=== PATIENT | male | born 1955 | race Caucasian/White ===

== ENCOUNTER 2016-11-15 10:44 | Day surgery (SDC) | payer MEDICARE, BC ==
[~2016-11-15 10:44] MED LIST: RINGERS SOLUTION,LACTATED 1,000 ML IV PRN
[2016-11-15] MEDS ORDERED: RINGERS SOLUTION,LACTATED 1,000 ML IV ONE (11:12)
[2016-11-15 13:57] VITALS: BP 132/76
--- NOTE | 2016-11-16 09:56 | OR ---
Operative Report - Dictated Report Narrative: OPERATIVE REPORT DATE OF OPERATION: 11/15/2016 PREOPERATIVE DIAGNOSIS: No recent dedicated colon studies POSTOPERATIVE DIAGNOSIS: 4 mm area of polypoid change in the rectum ( pathology pending). Sigmoid diverticulosis OPERATION: Colonoscopy with hot biopsy forceps polypectomy in the rectum SURGEON: Loki Warren MD ANESTHESIA: MADELINE Mora CRNA INDICATIONS FOR PROCEDURE: The patient is a 61-year-old male referred for colon screening by Dr. Dr. Hernandez. He has had no recent colon studies. There is no family history of colon cancer. The patient is currently asymptomatic. The patient is on chronic Coumadin therapy for DVT. His Coumadin has been discontinued with Lovenox bridging. FINDINGS: 4 mm area of polypoid change at 25 cm (pathology pending). Moderate sigmoid diverticulosis. NARRATIVE OF PROCEDURE: The patient was identified in the holding area, and prior to the administration of anesthetic, a multidisciplinary timeout was observed. With the patient in the left lateral position and after the administration of intravenous sedation, the perineum was inspected. There was no evidence of pilonidal disease or skin breakdown. The external appearance of the anus was normal. Sphincter tone was good. The flexible fiberoptic colonoscope was inserted into the rectum which was insufflated with air. There was a moderate amount of liquid stool remaining however this could be lavaged sufficient for diagnostic exam. There was a 4 mm area of polypoid change in the rectum. This was biopsied and then thoroughly destroyed with electrocautery. The site was seen to be complete and hemostatic. The rectal mucosa and submucosal vascular pattern appeared otherwise normal. The scope was advanced through the sigmoid colon, which contained numerous non-impacted noninflamed diverticular openings. The scope was advanced up the descending colon, and around the splenic flexure where the triangular haustral architecture of the transverse colon was seen. The scope was advanced across the transverse colon, around the hepatic flexure to the cecum, where the confluence of tenia and the ileocecal valve were identified. The mucosa at this level appeared normal. The scope was then slowly withdrawn in a circular fashion so that all aspects of colonic mucosa were inspected. The colon was normal in course and caliber. The haustral architecture appeared well preserved throughout with no evidence of external compression. The mucosa and submucosal vascular pattern appeared normal, specifically there was no gross evidence to suggest colitis or inflammatory bowel disease and no AV malformations were seen. The diverticulosis was moderate in degree and confined primarily to the sigmoid colon. No polyps proximal to the rectum were encountered. The scope was gradually withdrawn to the level of the rectum. As much insufflated air as possible was removed. The scope was withdrawn from the patient and the procedure terminated. The patient tolerated the anesthetic and procedure well without complication and was transferred back to the ambulatory surgery area awake and in stable condition. The patient remained stable throughout a period of postoperative observation. He denied abdominal discomfort, was able to tolerate by mouth intake, and was up without assistance. I shared the operative findings with the patient and he was given copies of the photographs which appear in the medical record. He was discharged home with instructions not to engage in hazardous activity today, but may resume normal activity tomorrow, and advance diet as tolerated. He is to continue those medications as listed in the history and physical exam. He has instructions through the anticoagulation clinic regarding Lovenox bridging and Coumadin resumption. I made arrangements to contact him with the biopsy reports and will make additional recommendations for treatment and follow-up based upon those results. Reviewed and electronically signed
== END 2016-11-15 10:45 | disposition home or self-care (01) ==
LOC: AMB 10:44
PROVIDERS: ATTEND Surgery
PROC: 0DBP8ZX Excision of Rectum, Via Natural or Artificial Opening Endoscopic, Diagnostic (ICD-10-PCS; principal; 2016-11-15 12:30)
DX: Z12.11 Encounter for screening for malignant neoplasm of colon (principal); K62.1 Rectal polyp; F17.200 Nicotine dependence, unspecified, uncomplicated; Z68.31 Body mass index [BMI] 31.0-31.9, adult